=== PATIENT | female | born 1990 | race Caucasian/White ===

== ENCOUNTER 2016-09-10 14:53 | Emergency (ER) | payer MEDICAID ==
[2016-09-10 14:53] VITALS: BMI 35.4
[2016-09-10 15:05] VITALS: BP 112/69; PULSE 107; RESP 18; TEMP 98.4; O2SAT 100
--- NOTE | 2016-09-10 15:53 | ED PDOC ---
Lower Extremity Pain/Injury Time Seen by Provider: 09/10/16 15:34 Chief Complaint (Nursing): Lower Extremity Problem/Injury Chief Complaint (Provider): Leg Pain History Per: Patient History/Exam Limitations: no limitations Onset/Duration Of Symptoms: Sudden Onset Current Symptoms Are (Timing): Still Present Severity: Moderate Additional Complaint(s): Dina Vega is a 25 y/o female (EGA unknown but first trimester as per patient), with a past medical history of back pain, presenting to the ER on 09/10/2016 with complaints of worsening left side low back that radiates down left leg x 1 day, no recent trauma or injury. Patient reports waking up this morning with pain initially localized near her left lateral hip that has radiated down her leg to her foot. She denies any vaginal bleeding or abdominal pain. Patient states she has not taken any pain medications prior to arrival as she is not sure what she can take while . Patient denies any dysuria, no fecal or urinary incontinence. Past Medical History Reviewed: Historical Data, Nursing Documentation, Vital Signs Vital Signs: Last Vital Signs Temp 98.4 F 09/10/16 15:04 Pulse 107 H 09/10/16 15:04 Resp 18 09/10/16 15:04 BP 112/69 09/10/16 15:04 Pulse Ox 100 09/10/16 15:04 - Medical History PMH: Anemia, Gastritis Other PMH: Pre-Diabetes; Back Pain - Surgical History Surgical History: (2012) Other surgeries: Left shoulder surgery - Family History Family History: States: No Known Family Hx - Living Arrangements Living Arrangements: With Family - Social History Current smoker - smoking cessation education provided: No Alcohol: None Drugs: Denies - Home Medications Home Medications: Ambulatory Orders Medication Instructions Recorded Naproxen 500 mg PO BID #14 tab 05/24/16 diaZEpam [Valium] 5 mg PO DAILY #5 tab 05/24/16 traMADol [Ultram] 50 mg PO Q6H #12 tab 05/24/16 Lidocaine 5% [Lidoderm] 1 ea TD DAILY #30 patch 09/10/16 - Allergies Allergies/Adverse Reactions: Allergies Allergy/AdvReac Type Severity Reaction Status Date / Time No Known Allergies Allergy Verified 05/24/16 17:48 Wells Criteria for PE - Wells Criteria for Pulmonary Embolism Clinical Signs and Symptoms of DVT: No P.E is #1 Diagnosis, or Equally Likely: No Heart Rate >100: No Immobilization at least 3 days;Surgery previous 4 weeks: No Previous, objectively diagnosed PE or DVT: No Hemoptysis: No Malignancy w/treatment within 6 months, or palliative: No Total Score: 0 Review of Systems ROS Statement: Except As Marked, All Systems Reviewed And Found Negative Constitutional: Negative for: Fever, Chills Gastrointestinal: Negative for: Nausea, Vomiting, Abdominal Pain Genitourinary Female: Negative for: Dysuria, Frequency, Incontinence, Hematuria , Vaginal Discharge, Vaginal Bleeding, Pelvic Pain Musculoskeletal: Positive for: Back Pain, Leg Pain ((+) left) Neurological: Negative for: Weakness, Numbness Physical Exam - Reviewed Nursing Documentation Reviewed: Yes Vital Signs Reviewed: Yes - Physical Exam Appears: Positive for: Non-toxic, No Acute Distress Head Exam: Positive for: ATRAUMATIC, NORMOCEPHALIC Skin: Positive for: Normal Color Eye Exam: Positive for: Normal appearance Neck: Positive for: Painless ROM Cardiovascular/Chest: Positive for: Regular Rate, Rhythm Respiratory: Positive for: Normal Breath Sounds Gastrointestinal/Abdominal: Positive for: Soft. Negative for: Tenderness, Distended, Guarding, Rebound Back: Positive for: Normal Inspection, Vertebral Tenderness ((+) left lower lumbar tenderness), Other ((+) ttp to left lateral hip with positive straight leg raise at 30 degrees.). Negative for: L CVA Tenderness, R CVA Tenderness Extremity: Positive for: Normal ROM, Other (pt was able to heel & toe walk with moderate pain. ). Negative for: Deformity, Swelling Neurologic/Psych: Positive for: Alert, Oriented. Negative for: Motor/Sensory Deficits - ECG O2 Sat by Pulse Oximetry: 100 Pulse Ox Interpretation: Normal Medical Decision Making Medical Decision Makin:34 Initial Impression- Back Pain w/ Sciatica Initial Plan- * Tylenol 975 mg PO Case was d/w OB communications officer, Dr. Hollingsworth, states to have patient continue with tylenol and rx given for lidoderm patch. Advised PMD follow up in 2-3 days. Documented by Namrata Izaguirre, acting as a scribe for Aiyana Nichols PA-C All medical record entries made by the Scribe were at my direction and personally dictated by me. I have reviewed the chart and agree that the record accurately reflects my personal performance of the history, physical exam, medical decision making, and the department course for this patient. I have also personally directed, reviewed, and agree with the discharge instructions and disposition. Disposition - Clinical Impression Clinical Impression: Back pain, Sciatic leg pain - Patient ED Disposition Is Patient to be Admitted: No Counseled Patient/Family Regarding: Diagnosis, Need For Followup, Rx Given - Disposition Referrals: [facility] [Provider Group] Disposition: Routine/Home Disposition Time: 16:32 Condition: STABLE Additional Instructions: Rest as possible and avoid heavy lifting. Take Tylenol every 4-6 hours for pain as needed. Take prescription meds as directed as needed. Follow-up with primary doctor in 2-3 days. Prescriptions: Lidocaine 5% [Lidoderm] 1 ea TD DAILY #30 patch Instructions: Back Pain (ED), Sciatica (ED), Back Exercises (ED)
== END 2016-09-10 17:00 | disposition home or self-care (01) ==
LOC: H.ER 14:53
DX: M54.2 Cervicalgia (principal); R73.03 Prediabetes; Z33.1 Pregnant state, incidental

== ENCOUNTER 2017-04-19 14:27 | Emergency (ER) | payer MEDICAID, OTHER ==
[2017-04-19 15:33] VITALS: BMI 40.3
[2017-04-19] MEDS ORDERED: Sodium Chloride 0.9% 1,000 ML IV SCH (15:45)
[2017-04-19] MEDS: Lactated Ringer's 1,000 ML IV SCH ×2 (15:50→16:45)
[2017-04-19 16:26] LABS: BASO # 0.1 K/uL (0.0-0.2); BASO % 0.7 % (0.0-2.0); EOS # 0.2 K/uL (0.0-0.7); EOS % 1.6 % (0.0-4.0); HEMOGLOBIN 11.1 g/dL (12.0-16.0); LYMPH # 1.2 K/uL (1.0-4.3); LYMPH % 10.2 % (20.0-40.0); MEAN CELL VOLUME 77.6 fl (81.0-99.0); MEAN CORPUSCULAR HEMOGLOBIN 24.3 pg (27.0-31.0); MEAN CORPUSCULAR HGB CONC 31.4 g/dL (33.0-37.0); MONO # 0.7 K/uL (0.0-0.8); MONO % 5.6 % (0.0-10.0); NEUT # 9.7 K/uL (1.8-7.0); NEUT % 81.9 % (50.0-75.0); RBC 4.55 Mil/uL (3.80-5.20); RED CELL DISTRIBUTION WIDTH 16.5 % (11.5-14.5); WHITE BLOOD COUNT 11.9 K/uL (4.8-10.8)
[2017-04-19 16:47] LABS: ALB/GLOB RATIO 0.9 (1.0-2.1); ALBUMIN 3.7 g/dL (3.5-5.0); ALT/SGPT 34 U/L (9-52); AST/SGOT 26 U/L (14-36); BLOOD UREA NITROGEN 6 mg/dl (7-17); CALCIUM 9.3 mg/dL (8.4-10.2); GFR AFRICAN-AMERICAN > 60; GFR NON-AFRICAN AMERICAN > 60
[2017-04-20 12:36] VITALS: BP 107/60; PULSE 98; RESP 18; TEMP 98; O2SAT 100
== END 2017-04-19 17:45 | disposition home or self-care (01) ==
LOC: H.EROB2 14:27 → H.EROB 15:16 → H.EROB2 17:45
DX: O21.0 Mild hyperemesis gravidarum (principal); O26.93 Pregnancy related conditions, unspecified, third trimester; R11.0 Nausea; R19.7 Diarrhea, unspecified; Z3A.38 38 weeks gestation of pregnancy
CPT/HCPCS: 80053; 85025; 96374; 99283; J2405; J7120

== ENCOUNTER 2017-04-21 21:59 | Inpatient (IN) | payer OTHER ==
[2017-04-21 22:48] VITALS: BMI 40.9
[2017-04-21] MEDS: Lactated Ringer's 1,000 ML IV SCH (23:15)
[2017-04-21] MEDS ORDERED: Lactated Ringer's 1,000 ML IV SCH (23:15)
[2017-04-21 23:20] VITALS: RESP 18; O2SAT 99
[2017-04-21 23:54] LABS: BASO # 0.1 K/uL (0.0-0.2); BASO % 0.8 % (0.0-2.0); EOS # 0.4 K/uL (0.0-0.7); EOS % 3.5 % (0.0-4.0); HEMOGLOBIN 11.3 g/dL (12.0-16.0); LYMPH # 2.7 K/uL (1.0-4.3); LYMPH % 24.6 % (20.0-40.0); MEAN CELL VOLUME 77.8 fl (81.0-99.0); MEAN CORPUSCULAR HEMOGLOBIN 24.8 pg (27.0-31.0); MEAN CORPUSCULAR HGB CONC 31.9 g/dL (33.0-37.0); MONO # 0.9 K/uL (0.0-0.8); MONO % 7.8 % (0.0-10.0); NEUT # 7.1 K/uL (1.8-7.0); NEUT % 63.3 % (50.0-75.0); NRBC % 0.1 % (0.0-0.0); RBC 4.55 Mil/uL (3.80-5.20); RED CELL DISTRIBUTION WIDTH 16.8 % (11.5-14.5); WHITE BLOOD COUNT 11.1 K/uL (4.8-10.8)
[2017-04-22] MEDS: Lactated Ringer's 1,000 ML IV SCH (00:15)
--- NOTE | 2017-04-22 07:39 | OBHP ---
Datetime: 04/21/2017 23:11 IP Adm Impression: Term, intrauterine ; Intact Membranes IP Adm Impression Other: early labor IP Admit Plan: Admit to unit; Initiate labor protocol Admit Comment, IP Provider: 26 yo EGA 38.6 confirmed with first US on 09/12/2016 presents to the [facility] with CTX. She shares that ctx started at 05:00 and has been every 3-4 minutes. +: mo vement. Denies: VB/LOF/cp/sob/n/v/dysuria PNC: [facility]: c/s x1 at [address] Alvarez 2013: 2/2 failure of descent; ectopic x 1 2015 gyne/pap: denies hx of sti; pap negative within the last year mhx: preDM2; anemia famhx: CAD, DM2, stroke, HTN, BRCA Surg: hernia 1994, ectopic 2015, c/s 2012; L shoulder 2015 soc: denies: smoking, etoh, illicit drugs Rx: FeSO4, PNV vitals stable General: pleasant, in no acute distress HEENT: normocephalic, PERRLA; AAOx3 Heart: no murmurs, regular rate and rhythm, S1, S2 normal. Lungs: clear to auscultation bilaterally, no wheezing Abdomen: nontender, gravid CVA: negative Lower extremities: negative for pitting edema 26 yo EGA 38.6 confirmed with first US on 09/12/2016 IUP early labor with contractions requested; conset obtained -Admit to L_D for progression of labor -LR, cbc, ts, ctx, gbs, gc Case d/w Dr. Sotero Elam MD Family Medicine, PGY1 OB Hospitalist note: With PGY1m I saw ad examined this pt at 22:50pm last night. Previous dcoumen neha [facility]CS. counselling done at [facility]. cosent form reviewed and signed by pt. Elizabeth Pelvic Type - PN: Adequate Extremities - PN: Normal Abdomen - PN: Normal Back - PN: Normal Breast - PN: Not Done Lungs - PN: Normal Heart - PN: Normal Thyroid - PN: Not Done Neurologic - PN: Normal HEENT - PN: Normal General - PN: Normal FHR - Baseline A Provider: 150 Membranes, Provider: Intact Pool Provider: Negative IP Hx Assessment: The History has been Reviewed and is Current EGA AdmitDate IP: 38.5 Vital Signs Provider: Reviewed; Within Normal Limits IP Chief Complaint: Uterine contractions; Maternal discomfort NICHD Variability Prov Fetus A: Moderate 6-25bpm NICHD Accel Fetus A IP Provider: 15X15 FHR Category Provider Fetus A: Category I NICHD Decel Fetus A IP Provider: None Dilatation, Provider: 2 Effacement, Provider: 50 Station, Provider: -3 Genitourinary Exam: Normal DTRs - PN: Not Done
--- NOTE | 2017-04-22 07:56 | OBPN ---
Datetime: 04/22/2017 07:39 IP Progress Impression Other: No active labor IP Informed Consent Obtain: Vaginal After IP Progress Plan: Discharge FHR - Baseline A Provider: 150 IP Progress Note Comment: 26 yo IUP 38.6 confirmed with first US on 09/12/2016 CTX stopped Exam: 2cm/50/-3 Patient desire going home Discharge patient with labor precautions and instructions given Fany Singherra PGY 1 Notified that pt wanted to go home She was re-examined - no change. She slept all night. +FM She wants to . Copy of consent given to pt. Advsied the her to call for appt this week (no follow up scheduled by [facility]). Labor instructions given Vital Signs Provider: Reviewed; Within Normal Limits NICHD Accel Fetus A IP Provider: 15X15 FHR Category Provider Fetus A: Category I NICHD Variability Prov Fetus A: Moderate 6-25bpm Datetime: 04/21/2017 23:11 Pool Provider: Negative Membranes, Provider: Intact Dilatation, Provider: 2 Effacement, Provider: 50 Station, Provider: -3 NICHD Decel Fetus A IP Provider: None
[2017-04-24 15:39] VITALS: BP 103/52; PULSE 81; TEMP 98
== END 2017-04-22 07:40 | disposition home or self-care (01) | DRG 373 ==
LOC: H.EROB2 21:59 → H.L&D 23:05
PROVIDERS: ADMIT Obstetrics & Gynecology; ATTEND Obstetrics & Gynecology
PROC: 4A1HXCZ Monitoring of Products of Conception, Cardiac Rate, External Approach (ICD-10-PCS; principal; 2017-04-21)
DX: O62.8 Other abnormalities of forces of labor (principal); O34.219 Maternal care for unspecified type scar from previous cesarean delivery; N85.8 Other specified noninflammatory disorders of uterus; Z3A.38 38 weeks gestation of pregnancy

== ENCOUNTER 2017-04-26 01:18 | Inpatient (IN) | payer OTHER ==
[2017-04-26] MEDS ORDERED: Phenaphthazine-PH Test Paper VI ONE (01:40)
[2017-04-26 02:46] LABS: BASO # 0.1 K/uL (0.0-0.2); BASO % 0.8 % (0.0-2.0); EOS # 0.6 K/uL (0.0-0.7); EOS % 4.4 % (0.0-4.0); LYMPH # 2.7 K/uL (1.0-4.3); LYMPH % 20.8 % (20.0-40.0); MEAN CORPUSCULAR HEMOGLOBIN 24.5 pg (27.0-31.0); MEAN CORPUSCULAR HGB CONC 31.4 g/dL (33.0-37.0); MEAN PLATELET VOLUME 8.6 fl (7.2-11.7); MONO # 0.7 K/uL (0.0-0.8); MONO % 5.1 % (0.0-10.0); NEUT # 9.1 K/uL (1.8-7.0); NEUT % 68.9 % (50.0-75.0); NRBC % 0.1 % (0.0-0.0); RBC 4.51 Mil/uL (3.80-5.20); WHITE BLOOD COUNT 13.2 K/uL (4.8-10.8)
[2017-04-26] MEDS ORDERED: Nalbuphine 20 mg/ml Inj (1 ml) IVP PRN (04:22)
[2017-04-26] MEDS ORDERED: Lactated Ringer's 1,000 ML IV SCH ×4 (07:00→22:00)
--- NOTE | 2017-04-26 07:09 | OBHP ---
Datetime: 04/26/2017 02:00 IP Adm Impression: Term, intrauterine ; Ruptured Membranes IP Adm Impression Other: Early labor IP Admit Plan: Admit to unit; Initiate labor protocol; Initiate protocol Admit Comment, IP Provider: 26 yo ega 39.3 wks confirmed by first US on 09/12/2016 presents to the [facility] with SROM 45 minutes( @ 1 am ) prior to arriving . Fluid was clear, slightly cloudy and n on bloody. She requests . Pt reports she had a section and was assured then that she cou ld have a chance at vaginal delivery. She was seen previously here and had been made to sign a consen t for . +: movement, lof, and ctx -:vb, CP/SOB/N/V PNC: [facility] at [facility]: [facility] past ob: c/s x1 2012 at 39 wks; sab x1 in 2005 gyne: denies hx of sti; pap neg med hx: predm, anemia famhx: htn, dm, cad, stroke, brca surg: c/s x1, L shoulder, hernia soc: denies: smoking, alcohol, illicit drugs rx: none NKDA General: pleasant, in no acute distress HEENT: normocephalic, PERRLA; AAOx3 Heart: no murmurs, regular rate and rhythm, S1, S2 normal. Lungs: clear to auscultation bilaterally, no wheezing Abdomen: nontender, gravid CVA: negative Lower extremities: negative for pitting edema pelvic: speculum: pooling of clear fluid in vaginal vault; nitrazine positive; Pelvic: 2 cm dilate d, 50 % effaced, stage -3. Assessment: 26 yo iup 39.3 wks confirmed by first US on 09/12/2016 presents to the [facility] wi th SROM. Multiparity Requesting TOLAC. The risks and benefits of were d/w the Pt including but not restricted to 0.5 to 1% chance of uterine rupture as weell as failure of . Questions from Pt were answered. -admit for progression of labor -continuous monitoring - consent signed GBS: neg; ABO-Rh: O+; Ab: neg; HIV: neg; RPR: neg; GC/C:? ; Rubella: IM; HbsAg: neg; PPD: quant go ld neg; case dw Dr. Sarina Elam MD PGY1 Pelvic Type - PN: Adequate Extremities - PN: Normal Abdomen - PN: Normal Back - PN: Normal Breast - PN: Not Done Lungs - PN: Normal Heart - PN: Normal Thyroid - PN: Not Done Neurologic - PN: Normal HEENT - PN: Normal General - PN: Normal FHR - Baseline A Provider: 150 Comments, ACOG Physical Exam: Abd: Soft, NT, BS- present, Speculum exam; Gross Pooling. Nitrazine Test - positive EGA AdmitDate IP: 39.4 Vital Signs Provider: Reviewed; Within Normal Limits IP Chief Complaint: Uterine contractions; Suspected ruptured membranes; Maternal discomfort NICHD Variability Prov Fetus A: Moderate 6-25bpm NICHD Accel Fetus A IP Provider: 15X15 FHR Category Provider Fetus A: Category I NICHD Decel Fetus A IP Provider: None Dilatation, Provider: 2 Effacement, Provider: 50 Station, Provider: -3 Genitourinary Exam: Normal DTRs - PN: Not Done Datetime: 04/26/2017 01:45 Amniotic Fluid Color, Provider: Clear Membranes, Provider: Ruptured Pool Provider: Positive Nitrazine Provider: Positive
--- NOTE | 2017-04-26 07:12 | OBADHP ---
Datetime: 04/26/2017 02:00 IP Adm Impression Other: Early labor Admit Comment, IP Provider: 26 yo ega 39.3 wks confirmed by first US on 09/12/2016 presents to the [facility] with SROM 45 minutes( @ 1 am ) prior to arriving . Fluid was clear, slightly cloudy and n on bloody. She requests . Pt reports she had a section and was assured then that she cou ld have a chance at vaginal delivery. She was seen previously here and had been made to sign a consen t for . +: movement, lof, and ctx -:vb, CP/SOB/N/V PNC: [facility] at [facility] [place]: [facility] past ob: c/s x1 2012 at 39 wks; sab x1 in 2005 gyne: denies hx of sti; pap neg med hx: predm, anemia famhx: htn, dm, cad, stroke, brca surg: c/s x1, L shoulder, hernia soc: denies: smoking, alcohol, illicit drugs rx: none NKDA General: pleasant, in no acute distress HEENT: normocephalic, PERRLA; AAOx3 Heart: no murmurs, regular rate and rhythm, S1, S2 normal. Lungs: clear to auscultation bilaterally, no wheezing Abdomen: nontender, gravid CVA: negative Lower extremities: negative for pitting edema pelvic: speculum: pooling of clear fluid in vaginal vault; nitrazine positive; Pelvic: 2 cm dilate d, 50 % effaced, stage -3. Assessment: 26 yo iup 39.3 wks confirmed by first US on 09/12/2016 presents to the [facility] wi th SROM. Multiparity Requesting TOLAC. The risks and benefits of were d/w the Pt including but not restricted to 0.5 to 1% chance of uterine rupture as weell as failure of . Questions from Pt were answered. -admit for progression of labor -continuous monitoring - consent signed GBS: neg; ABO-Rh: O+; Ab: neg; HIV: neg; RPR: neg; GC/C:? ; Rubella: IM; HbsAg: neg; PPD: quant go ld neg; case dw Dr. Sarina Elam MD PGY1 Pelvic Type - PN: Adequate Extremities - PN: Normal Abdomen - PN: Normal Back - PN: Normal Breast - PN: Not Done Lungs - PN: Normal Heart - PN: Normal Thyroid - PN: Not Done Neurologic - PN: Normal HEENT - PN: Normal General - PN: Normal FHR - Baseline A Provider: 150 Comments, ACOG Physical Exam: Abd: Soft, NT, BS- present, Speculum exam; Gross Pooling. Nitrazine Test - positive Vital Signs Provider: Reviewed; Within Normal Limits IP Chief Complaint: Uterine contractions; Suspected ruptured membranes; Maternal discomfort NICHD Variability Prov Fetus A: Moderate 6-25bpm NICHD Accel Fetus A IP Provider: 15X15 FHR Category Provider Fetus A: Category I NICHD Decel Fetus A IP Provider: None Dilatation, Provider: 2 Effacement, Provider: 50 Station, Provider: -3 Genitourinary Exam: Normal DTRs - PN: Not Done EGA AdmitDate IP: 39.4 IP Adm Impression: Term, intrauterine ; Ruptured Membranes IP Admit Plan: Admit to unit; Initiate labor protocol; Initiate protocol Datetime: 04/26/2017 01:45 Amniotic Fluid Color, Provider: Clear Membranes, Provider: Ruptured Pool Provider: Positive Nitrazine Provider: Positive
--- NOTE | 2017-04-26 07:37 | OBPN ---
Datetime: 04/26/2017 07:28 IP Progress Impression: Normal progression of labor; Reassuring heart rate IP Informed Consent Obtain: Vaginal After IP Procedures: Sterile Vag Exam IP Progress Plan: Continue present management; Cervical Ripening Contraction Comments Provider: Q 3-4 FHR - Baseline A Provider: 120 Gestation - Est Wks by US: 39.0 Presentation-Admit: Vertex IP Progress Note Comment: IUP at 39+ wks with SROM Previous C/S X1 Requesting for Active labor. Plan: Epidural for Pain. Monitor closely the progress of labor. NICHD Accel Fetus A IP Provider: 15X15 FHR Category Provider Fetus A: Category I NICHD Variability Prov Fetus A: Moderate 6-25bpm Dilatation, Provider: 2 Effacement, Provider: 80 Station, Provider: -3 NICHD Decel Fetus A IP Provider: None Datetime: 04/26/2017 02:00 Vital Signs Provider: Reviewed; Within Normal Limits Datetime: 04/26/2017 01:45 Pool Provider: Positive Nitrazine Provider: Positive Membranes, Provider: Ruptured Amniotic Fluid Color, Provider: Clear
[2017-04-26] MEDS ORDERED: Fentanyl/Bupivacaine HCl 250 ML EPI ONE ×2 (08:33→08:43)
[2017-04-26] MEDS: Lactated Ringer's 1,000 ML IV SCH ×2 (08:45→21:45)
[2017-04-26] MEDS ORDERED: Oxytocin 30 units/LR 500ML 30 U/500 ML BAG IV ONE ×2 (10:28→13:27)
[2017-04-26] MEDS ORDERED: Lidocaine 1% Inj (20ml) ONE (20:27)
[2017-04-26] MEDS ORDERED: ceFAZolin IV 2 gm in Dextrose 2 GM/50 ML BAG IVPB ONE ×2 (21:53→21:56)
[2017-04-26] MEDS ORDERED: Morphine 5 mg/10 ml preservative-free Inj(Duramorph) ONE (22:27)
[2017-04-26] MEDS ORDERED: Phenylephrine 10 mg/ml Inj ONE (22:27)
[2017-04-26] MEDS ORDERED: ePHEDrine 50 mg/ml Inj ONE (22:27)
[2017-04-26] MEDS ORDERED: Bupivacaine HCl 0.5% PF (30 ml) Inj ONE (22:32)
[2017-04-26] MEDS ORDERED: DiphenhydrAMINE 50 mg/ml Inj IVP PRN (23:33)
[2017-04-27] MEDS: Simethicone 80 mg Chewtab PO SCH ×5 (04:00→22:08)
[2017-04-27 06:40] LABS: HEMOGLOBIN 8.9 g/dL (12.0-16.0); MEAN CELL VOLUME 77.7 fl (81.0-99.0); MEAN CORPUSCULAR HEMOGLOBIN 24.1 pg (27.0-31.0); MEAN CORPUSCULAR HGB CONC 31.1 g/dL (33.0-37.0); RBC 3.7 Mil/uL (3.80-5.20); RED CELL DISTRIBUTION WIDTH 17.1 % (11.5-14.5); WHITE BLOOD COUNT 26.1 K/uL (4.8-10.8)
[2017-04-27] MEDS: Lactated Ringer's 1,000 ML IV SCH (10:48)
[2017-04-27] MEDS: Oxycodone/Acetaminophen 5/325 mg Tab PO PRN ×3 (10:56→22:09)
[2017-04-28] MEDS: Simethicone 80 mg Chewtab PO SCH ×5 (04:12→22:21)
--- NOTE | 2017-04-28 07:38 | OBPPN ---
Datetime: 04/28/2017 06:40 PP Pain Prov: Within normal limits PP Nausea Prov: Denies PP Flatus Prov: Yes PP BM Prov: No PP Breasts Prov: Not Done PP Heart Prov: Normal PP Lungs Prov: Normal PP Abdomen/Uterus Prov: Normal PP Lochia Prov: Normal PP Vulva/Perineum Prov: Not Done PP CVA Tenderness Prov: Normal PP Extremities Prov: Normal PP C/S Incision Prov: Normal PP Progress Prov: Normal PP Impression Prov: Normal progression PP Plan Prov: Continue present management PP Progress Note Prov: POD 2 S: 26 yo s/p on 04/26/2017. Pt. is seen and examined at bedside this AM. No ove rnight events. Pt reports mild abdominal pain, but well controlled with pain meds. D/c mehta, amarilis g removed, incision site healing well, no exudate seen, dry and intact. No nausea, advised to advance diet as tolerated. Breast feeding without difficulty. Lochia is similar to menses volume. No bowel m ovement, but passing gas per rectum. Denies fever/chills, diarrhea, nausea/vomiting, chest pain, dysp lauren, and dizziness. O: VS: stable GEN: NAD Cardio: S1S2, no murmurs Lungs: clear breath sounds b/l, no wheezing Abdomen: BS+, tenderness to palpation. Incision scar noted, well healing with no exudate seen, dry and intact. EXT: No edema, calves nontender NEURO/PSYCH: AAOx3, no grossly focal deficits, preserved affect and mood. Assessment/Plan: 26 yo s/p section on 04/26/2017. Pt remains afebrile, tolerating pain wit h medication, doing well on POD#2. OOB with caution SCDs for DVT prophylaxis, encouraged ambulating Percocet 5/325mg, and Motrin 600mg for pain. Colace 100mg PO BID/Senokot 17.2 mg for constipation Encourage and ambulating f/u CBC post op, 8.9/28.8; prescribed FeSO4 325 mg Tdap before d/c Anticipated d/c to home, 04/29/2017. Case dw OB attending --- Marc Elam MD PGY-1 OB Hospitalist Addendum: Pt seen and examined by me. POD 2 s/p repeat c/s for failed , doing well, breast and bottle feeding. Incision intact w/ steri strips. Continue current care. (ES) IP PP Procedures: None Vital Signs Provider PP: Reviewed; Within Normal Limits Datetime: 04/27/2017 06:45 PP Comments Phys Exam Prov: incision to be examined with dressing removal at 23:00
[2017-04-28] MEDS: Oxycodone/Acetaminophen 5/325 mg Tab PO PRN ×3 (08:50→22:21)
[2017-04-29 00:23] LABS: MEAN CELL VOLUME 78.8 fl (81.0-99.0); MEAN CORPUSCULAR HEMOGLOBIN 24.4 pg (27.0-31.0); RBC 3.28 Mil/uL (3.80-5.20); RED CELL DISTRIBUTION WIDTH 16.8 % (11.5-14.5); WHITE BLOOD COUNT 20.2 K/uL (4.8-10.8)
[2017-04-29] MEDS: Gentamicin 100mg/100ml NS 100 MG/100 ML BAG IVPB SCH ×4 (00:27→23:28)
[2017-04-29] MEDS: Simethicone 80 mg Chewtab PO SCH ×4 (05:09→22:15)
[2017-04-29] MEDS: Oxycodone/Acetaminophen 5/325 mg Tab PO PRN ×2 (08:37→18:27)
--- NOTE | 2017-04-29 13:34 | OBPPN ---
Datetime: 04/29/2017 07:00 PP Pain Prov: Within normal limits PP Nausea Prov: Denies PP Flatus Prov: Yes PP BM Prov: Yes PP Breasts Prov: Not Done PP Heart Prov: Normal PP Lungs Prov: Normal PP Abdomen/Uterus Prov: Normal PP Lochia Prov: Normal PP Vulva/Perineum Prov: Not Done PP CVA Tenderness Prov: Normal PP Extremities Prov: Normal PP C/S Incision Prov: Normal PP Progress Prov: Normal PP Comments Phys Exam Prov: fever resolved PP Impression Prov: Normal progression PP Plan Prov: Continue present management PP Progress Note Prov: POD 3 S: 26 yo s/p on 04/26/2017. Pt. is seen and examined at bedside this AM. Pt had an episode of fever measuring 100.5 at 22:45; upon evaluation, pt had fundal uterine tenderness. Pre scribed Clinda/Gent q8. Pt reports mild abdominal pain, however, significantly improved from last nig ht. D/c mehta, dressing removed, incision site healing well, no exudate seen, dry and intact. No naus ea, advised to advance diet as tolerated. Breast feeding without difficulty. Lochia is similar to men ses volume. Bowel movement and passing gas per rectum. Denies chills, diarrhea, nausea/vomiting, ches t pain, dyspnea, and dizziness. O: VS: stable GEN: NAD Cardio: S1S2, no murmurs Lungs: clear breath sounds b/l, no wheezing Abdomen: BS+, slight tenderness to palpation. Incision scar noted, well healing with no exudate se en, dry and intact with overlaying steri strips. EXT: No edema, calves nontender NEURO/PSYCH: AAOx3, no grossly focal deficits, preserved affect and mood. Assessment/Plan: 26 yo s/p section on 04/26/2017. Pt remains afebrile, tolerating pain wit h medication, doing well on POD#3. OOB with caution -Gent 100mg/Clinda 900mg q 8 SCDs for DVT prophylaxis, encouraged ambulating Percocet 5/325mg, and Motrin 600mg for pain. Colace 100mg PO BID/Senokot 17.2 mg for constipation Encourage and ambulating f/u CBC post op, 8.9/28.8; prescribed FeSO4 325 mg Tdap before d/c Anticipated d/c to home: 24 hrs after resolution of fever Case dw OB attending --- Marc Elam MD PGY-1 obh addendum: pt seen _ examined by me. agree w/note above. i: failed postop fever tmax 100.5 04/29 22:45, AF since anemic hgb8 p: as above. plan for d/c tomorrw if remains af. IP PP Procedures: None Vital Signs Provider PP: Reviewed; Within Normal Limits
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
[2017-04-30] MEDS: Simethicone 80 mg Chewtab PO SCH (04:34)
[2017-04-30 07:22] LABS: MEAN CELL VOLUME 78.4 fl (81.0-99.0); MEAN CORPUSCULAR HEMOGLOBIN 25.2 pg (27.0-31.0); MEAN CORPUSCULAR HGB CONC 32.2 g/dL (33.0-37.0); RBC 3.17 Mil/uL (3.80-5.20); RED CELL DISTRIBUTION WIDTH 16.5 % (11.5-14.5); WHITE BLOOD COUNT 9.8 K/uL (4.8-10.8)
[2017-04-30] MEDS: Gentamicin 100mg/100ml NS 100 MG/100 ML BAG IVPB SCH (07:29)
--- NOTE | 2017-04-30 08:33 | OBPPN ---
Datetime: 04/30/2017 07:47 PP Pain Prov: Within normal limits PP Nausea Prov: Denies PP Flatus Prov: Yes PP BM Prov: Yes PP Breasts Prov: Not Done PP Heart Prov: Normal PP Lungs Prov: Normal PP Abdomen/Uterus Prov: Normal PP Lochia Prov: Normal PP Vulva/Perineum Prov: Not Done PP CVA Tenderness Prov: Not Done PP Extremities Prov: Normal PP C/S Incision Prov: Normal PP Progress Note Prov: POD 4 S: 26 yo s/p on 04/26/2017. Pt. is seen and examined at bedside this AM. No acu te events overnight, pt has remained afebrile for 24+ hrs. Pt reports mild abdominal pain that is al leviated by medications. Incision site healing well, no exudate seen, dry and intact. Breast feeding without difficulty. Lochia is similar to menses volume. Has had BM and passing gas per rectum. Denies chills, diarrhea, nausea/vomiting, chest pain, dyspnea, and dizziness. O: VS: stable GEN: no acute distress, alert, oriented Cardio: S1S2, RRR Lungs: clear breath sounds bilaterally Abdomen: BS+, appropriate tenderness to palpation. Incision noted, well healing with no exudate se en, dry, clean. EXT: No edema, calves nontender Assessment: 26 yo s/p section on 04/26/2017. Pt remains afebrile, tolerating pain with med ication, doing well on POD#4. Plan: Discharge today. [id number]. OB Hospitalist Addendum: Pt seen and examined by me. Agree w/ above. POD 4 s/p primary c/s for fa iled , s/p treatment for endometritis, doing well, breast pumping. Discharge home today. (ES) Vital Signs Provider PP: Reviewed
[2017-04-30 18:48] VITALS: BP 134/88; PULSE 91; RESP 20; TEMP 98.1; O2SAT 97
== END 2017-04-30 10:55 | disposition home or self-care (01) | DRG 371 ==
LOC: H.EROB2 01:18 → H.L&D 01:54 → H.OB/GYN 04-27 02:00
PROVIDERS: ADMIT Obstetrics & Gynecology; ATTEND Obstetrics & Gynecology
PROC: 10D00Z1 Extraction of Products of Conception, Low, Open Approach (ICD-10-PCS; principal; 2017-04-26)
PROC: 4A1HXCZ Monitoring of Products of Conception, Cardiac Rate, External Approach (ICD-10-PCS; 2017-04-26)
DX: O34.219 Maternal care for unspecified type scar from previous cesarean delivery (principal); N85.8 Other specified noninflammatory disorders of uterus; Z37.0 Single live birth; R50.82 Postprocedural fever; Z3A.39 39 weeks gestation of pregnancy

== ENCOUNTER 2018-05-18 17:06 | Emergency (ER) | payer OTHER ==
[2018-05-18 17:06] VITALS: BMI 40.9
[2018-05-18] MEDS ORDERED: Sodium Chloride 0.9% 1,000 ML IV STA (17:49)
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
--- NOTE | 2018-05-18 19:04 | RAD ---
Date of service: 05/18/2018 PROCEDURE: Cervical Spine Radiographs. HISTORY: Pain. COMPARISON: None available. FINDINGS: BONES: Straightening of the normal cervical lordosis may be related to muscle spasm or positioning. Alignment maintained. No acute displaced fracture identified. Dens tip appears intact. DISC SPACES: Unremarkable. SOFT TISSUES: Unremarkable. No prevertebral soft tissue swelling. OTHER FINDINGS: None. IMPRESSION: Straightening of the normal cervical lordosis may be related to muscle spasm or positioning. No acute displaced fracture identified.
[2018-05-18 19:06] LABS: SQUAMOUS EPITHIAL 13 /hpf (0-5); URINE AMORPHOUS SEDIMENT RARE /ul (<OCC); URINE BACTERIA RARE (<OCC); URINE BILIRUBIN NEGATIVE (NEGATIVE); URINE BLOOD NEGATIVE (NEGATIVE); URINE CLARITY CLOUDY (Clear); URINE COLOR YELLOW (YELLOW); URINE GLUCOSE (UA) NEG (NEGATIVE); URINE LEUKOCYTE ESTERASE NEG Leu/uL (Negative); URINE PROTEIN NEGATIVE (NEGATIVE); URINE UROBILINOGEN 0.2-1.0 mg/dL (0.2-1.0)
[2018-05-18 23:00] VITALS: BP 116/66; PULSE 99; RESP 16; TEMP 98
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
[2018-05-19 15:48] VITALS: O2SAT 99
== END 2018-05-18 23:00 | disposition home or self-care (01) ==
LOC: H.ER 17:06
DX: O26.92 Pregnancy related conditions, unspecified, second trimester (principal); S13.4XXA Sprain of ligaments of cervical spine, initial encounter; Z04.3 Encounter for examination and observation following other accident; S16.1XXA Strain of muscle, fascia and tendon at neck level, initial encounter; O9A.212 Injury, poisoning and certain other consequences of external causes complicating pregnancy, second trimester; O32.1XX0 Maternal care for breech presentation, not applicable or unspecified; O26.892 Other specified pregnancy related conditions, second trimester; Z3A.14 14 weeks gestation of pregnancy; V49.40XA Driver injured in collision with unspecified motor vehicles in traffic accident, initial encounter
CPT/HCPCS: 72040; 76815; 81003; 81025; 99285; J7030

== ENCOUNTER 2018-06-01 19:36 | Emergency (ER) | payer OTHER ==
[2018-06-01 19:37] VITALS: BMI 40.9
[2018-06-01 20:08] VITALS: O2SAT 99
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
[2018-06-01 22:16] LABS: BASO # 0.1 K/uL (0.0-0.2); BASO % 0.6 % (0.0-2.0); EOS # 0.8 K/uL (0.0-0.7); EOS % 5.8 % (0.0-4.0); HEMOGLOBIN 11.2 g/dL (12.0-16.0); LYMPH # 2.9 K/uL (1.0-4.3); LYMPH % 20.4 % (20.0-40.0); MEAN CELL VOLUME 76.2 fl (81.0-99.0); MEAN CORPUSCULAR HEMOGLOBIN 23.8 pg (27.0-31.0); MEAN CORPUSCULAR HGB CONC 31.2 g/dL (33.0-37.0); MEAN PLATELET VOLUME 8.8 fl (7.2-11.7); MONO # 0.9 K/uL (0.0-0.8); MONO % 6.3 % (0.0-10.0); NEUT # 9.4 K/uL (1.8-7.0); NEUT % 66.9 % (50.0-75.0); RBC 4.69 Mil/uL (3.80-5.20); RED CELL DISTRIBUTION WIDTH 17.6 % (11.5-14.5); WHITE BLOOD COUNT 14.1 K/uL (4.8-10.8)
[2018-06-01 22:24] LABS: SQUAMOUS EPITHIAL < 1 /hpf (0-5); URINE BACTERIA RARE (<OCC); URINE BILIRUBIN NEGATIVE (NEGATIVE); URINE BLOOD NEGATIVE (NEGATIVE); URINE CLARITY SLIGHTY-CLOUDY (Clear); URINE COLOR YELLOW (YELLOW); URINE GLUCOSE (UA) NEG (NEGATIVE); URINE LEUKOCYTE ESTERASE NEG Leu/uL (Negative); URINE PROTEIN NEGATIVE (NEGATIVE); URINE UROBILINOGEN 0.2-1.0 mg/dL (0.2-1.0)
[2018-06-01 22:27] LABS: ALBUMIN 4.2 g/dL (3.5-5.0); ALT/SGPT 18 U/L (9-52); AST/SGOT 19 U/L (14-36); BLOOD UREA NITROGEN 8 mg/dl (7-17); CALCIUM 10.2 mg/dL (8.4-10.2); GFR NON-AFRICAN AMERICAN > 60
[2018-06-02 00:42] VITALS: BP 119/68; PULSE 98; RESP 18; TEMP 98.3
--- NOTE | 2018-06-02 09:00 | US ---
Date of service: 06/01/2018 PROCEDURE: HISTORY: 16 wks, twins, pelv pressure and cramping COMPARISON: TECHNIQUE: FINDINGS: Dichorionic/diamniotic twin . Fetus a is transverse in position on the maternal right with an EGA of 16 weeks and 3 days. cardiac activity is identified. The placenta is posterior and fundal in location. Fetus B is in cephalic position in the maternal left abdomen with estimated gestational age of 16 weeks. The placenta is fundal and anterior to the look in location. heart motion is identified. IMPRESSION: anatomic survey not performed. Recommend follow-up. Dichorionic/diamniotic twin .
== END 2018-06-02 00:14 | disposition home or self-care (01) ==
LOC: H.ER 19:36
DX: O26.892 Other specified pregnancy related conditions, second trimester (principal); Z3A.16 16 weeks gestation of pregnancy; O30.042 Twin pregnancy, dichorionic/diamniotic, second trimester